=== PATIENT | female | born 1995 | race Caucasian/White ===

== ENCOUNTER 2017-09-03 10:54 | Emergency (ER) | payer SELFPAY ==
--- NOTE | 2017-09-03 11:08 | ED Physician Chart ---
ED Chief Complaint/HPI - Patient Information Date Seen:: 09/03/17 Time Seen:: 11:03 Chief Complaint:: Cough History of Present Illness:: 22 yo female had runny nose and sore throat for 2 days. This morning, she started to cough productive of blood clots. She denied fever, chest pain or shortness of breath. Allergies:: Allergies Allergy/AdvReac Type Severity Reaction Status Date / Time No Known Allergies Allergy Verified 09/03/17 11:02 ED Review of Systems - Review of Systems General/Constitutional: No fever, Chills Skin: No bruising Head: Headache ENT: Earache Neck: No neck pain Cardio Vascular: No chest pain Pulmonary: No SOB GI: No nausea, No vomiting Musculoskeletal: No bone or joint pain ED Past Medical History - Past Medical History Past Medical History: No significant medical hx Social History: Non Smoker, No Alcohol, No Drug Use Surgical History: None (Second hand smoker) Family Medical History - Family Member Mother Ethnicity: Living Status: Still Living ED Physical Exam - Physical Examination General/Constitutional: Awake, Alert Head: Atraumatic Eyes: PERRL, EOMI Skin: No ecchymosis ENMT: Nasal exam nl Neck: No nuchal rigidity Respiratory: Clear to Auscultation, No Wheeze/Rhonchi/Rales Cardio Vascular: RRR, No murmur, gallop, rubs, NL S1 S2 GI: No tenderness/rebounding/guarding Extremities: normal strength in all extremities Neuro/Psych: No focal deficits ED Labs/Radiology/EKG Results - Radiology Results Results: CXR: no focal consolidation ED Assessment - Assessment General Assessment: URI Bronchitis Assessment/Comments:: CBC, CMP, UA CXR DuoNeb D/c home Azithromycin PO F/u PCP or return to ER if symptoms worsen ED Septic Shock - . Is Septic Shock (SBP<90, OR Lactate>4 mmol\L) present?: No ED Reassessment (Disposition) - Reassessment Reassessment Condition:: Improved - Patient Disposition Discharge/Transfer:: Home ED Discharge Plan - Patient Disposition Admit/Discharge/Transfer: PT DISCHARGED HOME Condition at Disposition: Stable Prescriptions: Azithromycin [Zithromax] 250 mg PO DAILY #6 tab Instructions: Upper Respiratory Infection, Adult, [id number] Additional Instructions: As tolerated.
[2017-09-03] MEDS ORDERED: Albuterol/Ipratropium Neb 3 ML AERS HHN ONE ×2 (11:15→11:28)
[2017-09-03 11:28] LABS: % BASOPHILS 0.8 % (0.0-2.0); % LYMPHOCYTES 32.6 % (20.0-50.0); % MONOCYTES 6.4 % (2.0-10.0); % NEUTROPHILS 56.2 % (40.0-80.0); EOSINOPHILE ABSOLUTE 0.2 Th/cmm (0.1-0.4); HEMATOCRIT 39.6 % (41.0-60); HEMOGLOBIN 13.1 gm/dL (12-16); LYMPHOCYTE ABSOLUTE 1.5 Th/cmm (1.5-3.0); MEAN CELL VOLUME 89.1 fl (81-100); MEAN CORPUSCULAR HEMOGLOBIN 29.5 pg (27.0-31.0); MEAN CORPUSCULAR HGB CONC 33.1 pg (28.0-36.0); MEAN PLATELET VOLUME 9.4 fl; MONOCYTE ABSOLUTE 0.3 Th/cmm (0.3-1.0); NEUTROPHILE ABSOLUTE 2.7 Th/cmm (1.8-8.0); PLATELET COUNT 199 Th/cmm (150-400); RED BLOOD COUNT 4.44 Mil/cmm (3.80-5.10); RED CELL DISTRIBUTION WIDTH 13.4 % (11.5-20.0); WHITE BLOOD COUNT 4.7 Th/cmm (4.8-10.8)
[2017-09-03 12:02] LABS: ALB/GLOB RATIO 1.4 (1.0-1.8); ALBUMIN 4.2 gm/dL (3.7-5.3); ALKALINE PHOSPHATASE 73 U/L (34-104); ANION GAP 10.7 (7.0-16.0); BILIRUBIN,TOTAL 0.5 mg/dL (0.3-1.0); BUN - UREA NITROGEN 7 mg/dL (7-25); CALCIUM SERUM 9.4 mg/dL (8.6-10.3); CARBON DIOXIDE 26.3 mEq/L (21.0-31.0); CHLORIDE 105 mEq/L (98-107); CREATININE - SERUM 0.5 mg/dL (0.6-1.2); GFR AFRICAN-AMERICAN > 60.0 ml/min (>90); GFR NON AFRICAN-AMERICAN > 60.0 ml/min; GLUCOSE 96 mg/dL (70-105); SGOT 26 U/L (13-39); SGPT/ALT 34 U/L (7-52); SODIUM SERUM 138 mEq/L (136-145); TOTAL PROTEIN,SERUM 7.3 gm/dL (6.0-8.3)
[2017-09-03 12:06] LABS: INR 1.06 (0.5-1.4)
--- NOTE | 2017-09-04 07:24 | Diagnostic Imaging Report ---
Portable chest x-ray Time: 1152 hours History: Cough Allowing for portable technique the heart size is normal. No focal pulmonary parenchymal processes. No hilar or mediastinal abnormalities. Impression: No acute abnormalities.
== END 2017-09-03 12:45 | disposition home or self-care (01) ==
LOC: ER 10:54
DX: J06.9 Acute upper respiratory infection, unspecified (principal); J40 Bronchitis, not specified as acute or chronic
CPT/HCPCS: 36415-UA; 71045-TC; 80053-TC; 81025-TC; 85025-TC; 85610-TC; 94640